=== PATIENT | female | born 1985 | race American Indian/Alaskan Native ===

== ENCOUNTER 2022-08-16 10:37 | Inpatient (IN) | payer BC ==
[2022-08-16] MEDS ORDERED: ACETAMINOPHEN 500 MG TAB PO ONE (11:46)
[2022-08-16] MEDS ORDERED: LACTATED RINGERS 1,000 ML IV SCH ×3 (12:00→14:15)
[2022-08-16] MEDS ORDERED: LIDOCAINE (2%) 20 MG/1 ML VIAL 20 ML MDV INFILTRATI ONE (12:05)
[2022-08-16] MEDS ORDERED: METHYLERGONOVINE MALEATE 0.2 MG/ML VIAL IM PRN (12:05)
[2022-08-16] MEDS ORDERED: CARBOPROST TROMETHAMINE 250 MCG/1 ML INJ IM PRN (12:05)
[2022-08-16] MEDS ORDERED: TERBUTALINE 1 MG/1 ML INJ SUB-Q PRN (12:05)
[2022-08-16] MEDS ORDERED: LOPERAMIDE 2 MG CAP PO PRN (12:05)
[2022-08-16] MEDS ORDERED: fentaNYL 100 MCG/2 ML INJ IV PRN (12:05)
[2022-08-16] MEDS ORDERED: ePHEDrine SULFATE 50 MG/1 ML INJ IV PRN ×2 (12:05→14:30)
[2022-08-16] MEDS ORDERED: ACETAMINOPHEN 325 MG TAB PO PRN (12:05)
[2022-08-16] MEDS ORDERED: BUTORPHANOL 2 MG/1 ML INJ IV PRN (12:05)
[2022-08-16] MEDS ORDERED: MINERAL OIL 30 ML ORAL LIQD PO PRN (12:05)
[2022-08-16] MEDS ORDERED: miSOPROStol 200 MCG TAB PR PRN (12:05)
[2022-08-16] MEDS ORDERED: OXYTOCIN 10 UNIT/1 ML INJ IM PRN (12:05)
--- NOTE | 2022-08-16 12:14 | History and Physical Report ---
History of Present Illness Date of examination: 08/16/22 Chief complaint: Labor History of present illness: EDC Calculations by LMP: 08/22/2022 Past History : 7 Term Births: 1 Premature Births: 0 Living Children: 1 Para: 1 Mult. Births: 0 Prev : 0 Prev. attempt? 0 Aborta: 5 Elect. Ab: 5 Spont. Ab: 0 Ectopics: 0 # 1 Delivery type: EAB # 2 Delivery type: EAB # 3 Delivery date: 2008 Weeks Gestation: 40 Delivery type: Infant Sex: Male weight: 8'12 Comments: Kate's palsy # 4 Delivery type: EAB # 5 Delivery type: EAB # 6 Delivery date: 11/2020 Weeks Gestation: 7 Delivery type: EAB Comments: D&C x 5 Past Medical History: Reviewed history from 10/29/2021 and no changes required: [place] Palsy age 12 and during her . Past Surgical History: Reviewed and updated today: negative Family History Summary: Reviewed history Last on 10/29/2021 and no changes required:01/14/2022 Mother - Has Family History of Diabetes - MGM t2DM - Entered On: 02/06/2017 Mother - Has Family History of Hypertension - father - Entered On: 02/06/2017 General Comments - FH: MGM kidney cancer, ; Social History: Reviewed history from 05/20/2019 and no changes required: Patient is single in a relation for 2 weeks. used only condoms. Smoking History: Patient has never smoked. 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 counselor % Alcohol Use: no Drug Use: no Past Medical History Anesthesia Complications: negative Anemia: negative Autoimmune Disorder: negative Bleeding Disorder: negative Blood Transfusions: negative Breast Disease: negative Diabetes: negative Heart Disease: negative Hypertension: negative Hepatitis/Liver Disease: negative Kidney Disease/UTI: negative Neurologic/Epilepsy/Migraines: negative Phlebitis/Varicosities: negative Psychiatric: negative Pulmonary Disease/Asthma: negative Thyroid Disease: negative Hospitalizations: negative Surgery (Non-meat cooler): negative Abnormal PAP: negative MAL Exposure: negative Infertility: negative Uterine Anomaly: negative Uterine Surgery (not C/S): negative Other Gynecologic Problems: negative Social Hx: Patient is single in a relation for 2 weeks. used only condoms. Smoking History: Patient has never smoked. Infection History Hx of STD: none HIV Risk Eval: no Hepatitis B Risk Eval: low risk Personal hx. of genital herpes: yes Rash, Viral, or Febrile illness since last LMP? no Varicella/Chicken Pox Status: Previous Disease TB Risk: no Genetic History Congenital Heart Defect: Mom: no Dad: no Mario Disease: Mom: no Dad: no Thalassemia Mom: no Dad: no Neural Tube Defect Mom: no Dad: no Down's Syndrome Mom: no Dad: no Bill-Sachs Mom: no Dad: no Sickle Cell Disease/Trait Mom: no Dad: no Hemophilia Mom: no Dad: no Muscular Dystrophy Mom: no Dad: no Cystic Fibrosis Mom: no Dad: no Renee Chorea Mom: no Dad: no Mental Retardation Mom: no Dad: no Fragile X Mom: no Dad: no Other Genetic/Chromosomal Disorder Mom: no Dad: no Child w/other defect Mom: no Dad: no Enviromental Exposures Enviromental Exposures Reviewed Xray Exposure: no Medication, drug, or alcohol use since LMP: no Chemical/Other Exposure: no Exposure to Cat Liter: no Hx of Parvovirus (Fifth Disease): no 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 (reviewed today): None Current Allergies (reviewed today): No known allergies Past History Past Medical History: other (see HPI) Past Surgical History: other (see HPI) TOE SEWER History: other (see HPI) Family/Genetic History: other (see HPI) - Obstetrical History Expected Date of Delivery: 08/22/22 Actual Gestation: 39 Week(s) 1 Day(s) : 7 Para: 1 Hx # Term Pregnancies: 1 Number of Pregnancies: 0 Spontaneous Abortions: 0 Induced : 5 Number of Living Children: 1 Medications and Allergies Allergies Allergy/AdvReac Type Severity Reaction Status Date / Time No Known Allergies Allergy Unverified 08/16/22 11:27 Active Meds: Active Medications Lactated Ringer's (Lactated Ringers) 1,000 mls @ 150 mls/hr IV DIRECT ARTURO Review of Systems All systems: negative - Vital Signs Vital signs: Vital Signs Pulse Pulse Ox 93 H 93 08/16/22 11:33 08/16/22 11:33 Temp Pulse Resp BP Pulse Ox 94 H 130/55 90 08/16/22 12:06 08/16/22 11:34 08/16/22 12:06 - Physical Exam Breasts: Positive: normal Cardiovascular: Regular rate Lungs: Positive: Normal air movement Abdomen: Positive: normal appearance, soft Genitourinary (Female): Positive: normal external genitalia, normal perenium Vagina: Positive: normal moisture Uterus: Positive: normal size, normal contour Anus/Rectum: Positive: normal perianal skin Extremities: Positive: normal Deep Tendon Reflex Grade: Normal +2 - Obstetrical FHR: category 2 Uterine Contraction Monitor Mode: External Cervical Dilatation: 3 (cephalic) Cervical Effacement Percentage: 90 station: -1 Uterine Contraction Frequency (min): 2-4 Uterine Contraction Duration: 60 Uterine Contraction Pattern: Regular Uterine Tone Measurement Phase: Contraction Uterine Contraction Intensity: Strong/Firm Results All other labs normal. Assessment and Plan 37y/o @ 39+1 weeks presented in active labor - went from /high to /-1 with normal bloody show in <1hr. decresed variabilty, 4.5min decel in FHT down to the 60's noted immediately before recheck. EFW 8#2oz 08/09/2022, pt reports last baby 8#12oz without difficulty. Admission orders in EMR. GBS NEG. Dr. Farris aware. - Patient Problems (1) 39 weeks gestation of Current Visit: Yes Status: Acute (2) WPW (Atqmp-Bsdceiduf-Fqwwl syndrome) Current Visit: Yes Status: Acute (3) AMA (advanced maternal age) multigravida 35+ Current Visit: Yes Status: Acute Qualifiers: Trimester: third trimester Qualified Code(s): O09.523 - Supervision of elderly multigravida, third trimester (4) pyelectasis Current Visit: Yes Status: Acute Plan to address problem: right side - pylectasis Left side hydronephrosis Bilateral renal dilation ~peds to f/u after delivery (5) hydronephrosis Current Visit: Yes Status: Acute Plan to address problem: Left side Peds to follow after delivery
[2022-08-16] MEDS ORDERED: OXYTOCIN DRIP 30 UNITS/500 ML BAG IV SCH ×3 (13:00→17:47)
[2022-08-16 13:26] LABS: Hematocrit 30.9 % (30.3-42.9); Hemoglobin 9.7 gm/dl (10.1-14.3); Mean Corpuscular HGB Conc 31 % (30-34); Mean Corpuscular Volume 76 fl (79-97); Platelet Count 219 K/mm3 (140-440); Red Blood Count 4.08 M/mm3 (3.65-5.03); Red Cell Distribution Width 18.1 % (13.2-15.2)
[2022-08-16] MEDS ORDERED: fentaNYL-BUPIV 2 MCG/ML-0.125% 200 MCG/100 ML BAG EPIDURAL SCH (14:00)
[2022-08-16] MEDS ORDERED: METOCLOPRAMIDE 10 MG/2 ML INJ IV SCH (14:14)
[2022-08-16] MEDS ORDERED: FAMOTIDINE 20 MG/2 ML INJ IV SCH (14:14)
[2022-08-16] MEDS ORDERED: BICITRA ORAL LIQD 30ML PO SCH (14:14)
[2022-08-16] MEDS ORDERED: MORPHINE PF 10MG/10 ML AMPULE ONE (14:16)
--- NOTE | 2022-08-16 14:16 | Event Note ---
Date: 08/16/22 Patient sitting up for epidural, FHT deceleration noted down to 60's without recovery after position change. Dr. Farris called for stat c/s, pt moved to OR. All appropriate staff aware. pre-op ordered placed.
[2022-08-16] MEDS ORDERED: propofoL 200 MG/20 ML VIAL IV ONE (14:19)
[2022-08-16] MEDS ORDERED: SUCCINYLCHOLINE CHLORIDE 200 MG/10 ML INJ MDV ONE (14:19)
[2022-08-16] MEDS ORDERED: NALOXONE 0.4 MG/1 ML INJ IV PRN ×3 (14:30→17:47)
[2022-08-16] MEDS ORDERED: KETAMINE/STERILE WATER 50 MG/ML SYRINGE ONE (14:31)
[2022-08-16] MEDS ORDERED: ROCURONIUM 50 MG/5 ML INJ IV ONE (14:33)
[2022-08-16] MEDS ORDERED: OXYTOCIN 10 UNIT/1 ML INJ ONE ×2 (14:33→14:55)
[2022-08-16] MEDS ORDERED: PHENYLEPHRINE/NS 1,000 MCG/10 ML SYRINGE (OR USE) IV ONE (14:36)
[2022-08-16] MEDS ORDERED: LIDOCAINE MPF (2%) 20 MG/1 ML VIAL 5 ML ONE (14:42)
[2022-08-16] MEDS ORDERED: MIDAZOLAM 2 MG/2 ML INJ ONE (14:57)
[2022-08-16] MEDS ORDERED: ceFAZolin/Water 2 GM/20 ML 2 GM/20 ML SYRINGE IV SCH (15:00)
[2022-08-16] MEDS ORDERED: LACTATED RINGERS 1,000 ML ONE (15:00)
[2022-08-16] MEDS ORDERED: ONDANSETRON 4 MG/2 ML INJ ONE (15:12)
[2022-08-16] MEDS ORDERED: dexAMETHasone 20 MG/5 ML VIAL ONE (15:13)
[2022-08-16] MEDS ORDERED: GLYCOPYRROLATE 0.4 MG/2 ML INJ ONE (15:14)
[2022-08-16] MEDS ORDERED: NEOSTIGMINE 10MG/10 ML INJ MDV ONE (15:14)
[2022-08-16 15:24] LABS: ABG Base Excess -3.6 mmol/L (-2.0-3.0); ABG HCO3 22.1 mmol/L (20.0-26.0); ABG Oxygen Saturation 54.4 % (95.0-99.0); ABG PCO2 42.4 mm Hg; ABG PH 7.335 pH Units (7.350-7.450)
--- NOTE | 2022-08-16 15:34 | Operative Report ---
Operative Report Operative Report: Date of Procedure: August 16, 2022 Preoperative diagnosis: IUP @39 weeks, nonreassuring heart tracing Postoperative diagnosis: same, s/p stat section Procedure: Low transverse section Surgeon: Shelley Farris MD Hospital Sales Representative: SULEMA Anesthesia: General Complications: Uterine atony status post 10 units intramuscular Pitocin and Methergine QBL:1192 ml IV Fluids: 2400 ml UOP:200 ml, clear urine at the end of procedure Indications: Prolonged deceleration Findings:3970 g female in direct occiput posterior position cephalic presentation with Apgars 8 & 8 Amniotic fluid thick meconium Fallopian tubes normal in appearance bilaterally Ovaries normal in appearance bilaterally Procedure: The patient was taken to the operating room where general anesthesia was was given following a Betadine splash and draping in a sterile fashion. A Pfannenstiel skin incision was made with the scalpel and carried through to the underlying rectus muscle. The rectus muscles were then in the midline, and the peritoneum identified and entered bluntly. The peritoneal incision was then extended superiorly and inferiorly with good visualization of the bladder. The bladder blade was placed and the lower uterine segment incised in a transverse fashion with the scalpel. The uterine incision was then extended laterally digitally. The bladder blade was then removed and the infant was delivered via direct occiput posterior position. The cord was clamped and cut. The was handed off to the waiting pediatricians.The placenta was then removed; the uterus exteriorized and cleared of all clots and debris. The uterus was noted to be atonic despite IV Pitocin. 10 units of Pitocin was given intra muscularly to the uterus. Anemia both of arterial bleeding was noted along the hysterotomy and repaired using a jrjzsb-en-kndbe suture hemostasis obtained. The uterine incision was repaired with 0 vicryl in a running locked fashion to obtain excellent hemostasis. An imbrication layer was done. An area of oozing was noted and a figure of eight suture was placed giving excellent hemostasis. Uterus returned to the abdomen. The rectus muscle was reapproximated with 2-0 vicryl. The fascia was reapproximated with 0 vicryl in a running fashion. Subcutaneous layer reapproximated with interrupted sutures of 2-0 vicryl. The skin was closed with 4-0 monocryl subcuticular stitch and the incision sealed with Steri-strips.The patient tolerated the procedure well. Sponge, lap, needle counts correct X 2. The patient was taken to the recovery room in a stable condition.
--- NOTE | 2022-08-16 15:52 | Anesthesia Consultation ---
Anesthesia Consult and Med Hx Date of service: 08/16/22 - Airway Anesthetic Teeth Evaluation: Poor ROM Head & Neck: Adequate Mental/Hyoid Distance: Adequate Mallampati Class: Class III Intubation Access Assessment: Probably Good - Pulmonary Exam CTA: Yes - Cardiac Exam Cardiac Exam: RRR - Pre-Operative Health Status ASA Pre-Surgery Classification: ASA3, Emergency Proposed Anesthetic Plan: General - Pulmonary Hx Smoking: No Hx Asthma: No Hx Respiratory Symptoms: No - Cardiovascular System Hx Hypertension: No Hx Cardia Arrhythmia: Yes (tiffany Parkinson Whit ) - Endocrine Hx Insulin Dependent Diabetes: No Hx Non-Insulin Dependent Diabetes: No Hx Thyroid Disease: No - Hematic Hx Anemia: Yes - Other Systems Hx Alcohol Use: No Hx Substance Use: No Hx Obesity: Yes
[2022-08-16] MEDS ORDERED: HYDROmorphone 1 MG/1 ML INJ IV PRN (16:30)
[2022-08-16] MEDS ORDERED: ONDANSETRON 4 MG/2 ML INJ IV PRN (16:30)
[2022-08-16 16:32] LABS: ABG PO2 24.6 mm Hg (80.0-90.0)
[2022-08-16 17:00] LABS: Mean Corpuscular HGB Conc 29 % (30-34); Mean Corpuscular Volume 79 fl (79-97); Platelet Count 253 K/mm3 (140-440); Red Cell Distribution Width 18.6 % (13.2-15.2)
[2022-08-16 17:05] LABS: Hematocrit 30.1 % (30.3-42.9); Hemoglobin 8.8 gm/dl (10.1-14.3)
[2022-08-16] MEDS ORDERED: MORPHINE 2 MG/1 ML INJ IV PRN (17:47)
[2022-08-16] MEDS ORDERED: LANOLIN/ZINC/DIMETHICONE (LANSINOH) 7 GM TP PRN (17:47)
[2022-08-16] MEDS ORDERED: MORPHINE 4 MG/1 ML INJ IV PRN (17:47)
[2022-08-16] MEDS ORDERED: WITCH HAZEL/ GLYCERIN PAD TP PRN (17:47)
[2022-08-16] MEDS: ceFAZolin/NS 2 GM/100 ML 2 GM/100 ML BAG IV SCH (18:55)
[2022-08-16 19:37] LABS: Anisocytosis 1+; Band Neutrophils # (Manual) 0.3 K/mm3; Basophils % (Manual) 0 % (0.0-1.8); Eosinophils % (Manual) 0 % (0.0-4.3); Hypochromasia Few; Platelet Estimate Consistent w Auto; Total Cells Counted 100
[2022-08-16] MEDS: KETOROLAC 30 MG/1 ML INJ IV SCH (21:37)
[2022-08-17] MEDS: HYDROmorphone 1 MG/1 ML INJ IV PRN ×2 (00:06→07:06)
[2022-08-17] MEDS: ceFAZolin/NS 2 GM/100 ML 2 GM/100 ML BAG IV SCH ×2 (02:41→10:36)
[2022-08-17] MEDS: KETOROLAC 30 MG/1 ML INJ IV SCH ×2 (04:22→09:37)
[2022-08-17 06:14] LABS: Hemoglobin 7.3 gm/dl (10.1-14.3)
[2022-08-17] MEDS ORDERED: LACTATED RINGERS 1,000 ML IV SCH (08:00)
[2022-08-17] MEDS: FERROUS SULFATE 325 MG TAB PO SCH ×4 (10:36→21:15)
[2022-08-17] MEDS: PRENATAL VIT27-FE FUMARATE-FOLIC ACID VIT TAB PO SCH (10:36)
--- NOTE | 2022-08-17 11:08 | Progress Note ---
Assessment and Plan doing well, no complaints. Ambulated to bathroom without difficulty. incision dressed and dry, will remove before or during shower today. VSSAF, H&H 7.3 - asymptomatic anemia due to acute blood loss - Patient Problems (1) WPW (Kfyhm-Qfpjjxbep-Zayxr syndrome) Current Visit: Yes Status: Acute (2) delivery delivered Current Visit: Yes Status: Acute Plan to address problem: continue postop pathway advance diet and activity as tolerated Anticipate d/c home tomorrow. Subjective - Subjective Date of service: 08/17/22 Principal diagnosis: postop day # 1 s/p primary c/s Interval history: EDC Calculations by LMP: 08/22/2022 Past History : 7 Term Births: 1 Premature Births: 0 Living Children: 1 Para: 1 Mult. Births: 0 Prev : 0 Prev. attempt? 0 Aborta: 5 Elect. Ab: 5 Spont. Ab: 0 Ectopics: 0 # 1 Delivery type: EAB # 2 Delivery type: EAB # 3 Delivery date: 2008 Weeks Gestation: 40 Delivery type: Sex: Male weight: 8'12 Comments: Kate's palsy # 4 Delivery type: EAB # 5 Delivery type: EAB # 6 Delivery date: 11/2020 Weeks Gestation: 7 Delivery type: EAB Comments: D&C x 5 Past Medical History: Reviewed history from 10/29/2021 and no changes required: [place] Palsy age 12 and during her . Past Surgical History: Reviewed and updated today: negative Family History Summary: Reviewed history Last on 10/29/2021 and no changes required:01/14/2022 Mother - Has Family History of Diabetes - MGM t2DM - Entered On: 02/06/2017 Mother - Has Family History of Hypertension - father - Entered On: 02/06/2017 General Comments - FH: MGM kidney cancer, ; Social History: Reviewed history from 05/20/2019 and no changes required: Patient is single in a relation for 2 weeks. used only condoms. Smoking History: Patient has never smoked. 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 % Alcohol Use: no Drug Use: no Past Medical History Anesthesia Complications: negative Anemia: negative Autoimmune Disorder: negative Bleeding Disorder: negative Blood Transfusions: negative Breast Disease: negative Diabetes: negative Heart Disease: negative Hypertension: negative Hepatitis/Liver Disease: negative Kidney Disease/UTI: negative Neurologic/Epilepsy/Migraines: negative Phlebitis/Varicosities: negative Psychiatric: negative Pulmonary Disease/Asthma: negative Thyroid Disease: negative Hospitalizations: negative Surgery (Non-recreation director): negative Abnormal PAP: negative MAL Exposure: negative Infertility: negative Uterine Anomaly: negative Uterine Surgery (not C/S): negative Other Gynecologic Problems: negative Social Hx: Patient is single in a relation for 2 weeks. used only condoms. Smoking History: Patient has never smoked. Infection History Hx of STD: none HIV Risk Eval: no Hepatitis B Risk Eval: low risk Personal hx. of genital herpes: yes Rash, Viral, or Febrile illness since last LMP? no Varicella/Chicken Pox Status: Previous Disease TB Risk: no Genetic History Congenital Heart Defect: Mom: no Dad: no Mario Disease: Mom: no Dad: no Thalassemia Mom: no Dad: no Neural Tube Defect Mom: no Dad: no Down's Syndrome Mom: no Dad: no Bill-Sachs Mom: no Dad: no Sickle Cell Disease/Trait Mom: no Dad: no Hemophilia Mom: no Dad: no Muscular Dystrophy Mom: no Dad: no Cystic Fibrosis Mom: no Dad: no [place] Chorea Mom: no Dad: no Mental Retardation Mom: no Dad: no Fragile X Mom: no Dad: no Other Genetic/Chromosomal Disorder Mom: no Dad: no Child w/other defect Mom: no Dad: no Enviromental Exposures Enviromental Exposures Reviewed Xray Exposure: no Medication, drug, or alcohol use since LMP: no Chemical/Other Exposure: no Exposure to Cat Liter: no Hx of Parvovirus (Fifth Disease): no 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 (reviewed today): None Current Allergies (reviewed today): No known allergies Patient reports: appetite normal, voiding normally, pain well controlled, ambulating normally, no dizzy ambulation, no flatus, no nauseated : doing well Objective - Vital Signs Latest vital signs: Vital Signs Temp Pulse Resp BP BP Pulse Ox Pulse Ox 08/17/22 08:30 100 08/17/22 07:44 98.7 F 105 H 18 104/63 100 08/17/22 07:06 16 08/17/22 04:28 98.9 F 96 H 18 113/65 97 08/17/22 00:06 16 08/16/22 22:40 98.6 F 87 18 114/72 98 08/16/22 19:50 96 08/16/22 17:35 89 18 95/59 93 08/16/22 16:40 98 H 15 95/64 96 08/16/22 16:30 84 15 102/58 96 08/16/22 16:20 80 14 103/58 94 08/16/22 16:10 80 18 98/59 99 08/16/22 14:10 98 H 109/61 100 08/16/22 14:05 104 H 100 08/16/22 13:59 83 99/72 08/16/22 13:13 82 118/59 08/16/22 13:12 73 91 08/16/22 12:31 91 H 97 08/16/22 12:27 89 94 08/16/22 12:26 98 H 99 08/16/22 12:21 102 H 95 08/16/22 12:19 89 94 08/16/22 12:16 91 H 94 08/16/22 12:13 91 H 94 08/16/22 12:11 98 H 97 08/16/22 12:06 94 H 90 08/16/22 12:04 95 H 93 08/16/22 12:01 89 97 08/16/22 11:56 92 H 96 08/16/22 11:54 98 H 94 08/16/22 11:51 88 94 08/16/22 11:48 94 H 94 08/16/22 11:46 92 H 97 08/16/22 11:42 100 H 93 08/16/22 11:41 96 H 96 08/16/22 11:36 91 H 96 08/16/22 11:34 89 130/55 08/16/22 11:33 93 H 93 Intake and Output 08/16/22 08/17/22 08/17/22 23:59 07:59 15:59 Intake Total 300 300 Output Total 600 150 300 Balance -300 150 -300 Intake: IV 100 100 ceFAZolin/NS 2 GM/100 ML 100 100 2 gm In 100 ml @ 200 mls/ hr IV Q8H ARTURO Rx#: [id number] Intake, Free Water 200 200 Output: Urine 600 150 300 Indwelling 300 Indwelling Catheter 300 150 Void 300 Other: Total, Output Amount 300 150 300 - Exam Breasts: Present: normal Cardiovascular: Present: Regular rate Lungs: Present: Clear to auscultation, Normal air movement Abdomen: Present: normal appearance, soft. Absent: tenderness, guarding Vulva: both: normal Uterus: Present: normal, firm, fundal height above umbilicus Extremities: Present: normal Incision: Present: normal, dry, dressed - Labs Labs: Abnormal lab results 08/16/22 08/16/22 08/16/22 Range/Units 12:11 14:40 15:11 WBC 12.1 H 25.9 H (4.5-11.0) K/mm3 Hgb 9.7 L 8.8 L (10.1-14.3) gm/dl Hct 30.1 L (30.3-42.9) % MCV 76 L (79-97) fl MCH 24 L 23 L (28-32) pg MCHC 29 L (30-34) % RDW 18.1 H 18.6 H (13.2-15.2) % Seg Neuts % (Manual) 90.0 H (40.0-70.0) % Lymphocytes % (Manual) 6.0 L (13.4-35.0) % Seg Neutrophils # Man 23.3 H (1.8-7.7) K/mm3 ABG pH 7.335 L (7.350-7.450) pH Units ABG pO2 24.6 L* (80.0-90.0) mm Hg ABG O2 Saturation 54.4 L (95.0-99.0) % ABG Base Excess -3.6 L (-2.0-3.0) mmol/L Oxyhemoglobin 53.1 L (95.0-99.0) % 08/17/22 Range/Units 05:23 WBC (4.5-11.0) K/mm3 Hgb 7.3 L (10.1-14.3) gm/dl Hct 24.0 L D (30.3-42.9) % MCV (79-97) fl MCH (28-32) pg MCHC (30-34) % RDW (13.2-15.2) % Seg Neuts % (Manual) (40.0-70.0) % Lymphocytes % (Manual) (13.4-35.0) % Seg Neutrophils # Man (1.8-7.7) K/mm3 ABG pH (7.350-7.450) pH Units ABG pO2 (80.0-90.0) mm Hg ABG O2 Saturation (95.0-99.0) % ABG Base Excess (-2.0-3.0) mmol/L Oxyhemoglobin (95.0-99.0) %
[2022-08-17] MEDS: oxyCODONE /ACETAMINOPHEN 5-325MG TAB PO PRN ×2 (11:52→17:57)
--- NOTE | 2022-08-17 14:02 | Post Anesthesia Evaluation ---
- Post Anesthesia Evaluation Patient Participated: Yes Airway Patent: Yes Stable Respiratory Function: Yes Nausea/Vomiting: No Temp > 96.8F: Yes Pain Manageable: Yes Adequeate Hydration: Yes Anesthesia Complications: No Block Receding Appropriately: Yes Patient on Ventilator: No
[2022-08-17] MEDS: IBUPROFEN 800 MG TAB PO SCH ×2 (16:48→22:15)
[2022-08-18] MEDS: oxyCODONE /ACETAMINOPHEN 5-325MG TAB PO PRN ×2 (02:15→10:41)
[2022-08-18] MEDS: IBUPROFEN 800 MG TAB PO SCH ×2 (06:35→15:48)
[2022-08-18 08:27] LABS: Hemoglobin 5.7 gm/dl (10.1-14.3)
[2022-08-18 08:29] LABS: Hematocrit 18.8 % (30.3-42.9)
[2022-08-18] MEDS: FERROUS SULFATE 325 MG TAB PO SCH (10:37)
[2022-08-18] MEDS: PRENATAL VIT27-FE FUMARATE-FOLIC ACID VIT TAB PO SCH (10:37)
[2022-08-18] MEDS ORDERED: SODIUM CHLORIDE 0.9% 500 ML 500 ML IV ONE (13:12)
--- NOTE | 2022-08-18 14:22 | Discharge Summary ---
Providers - Providers Date of Admission: 08/16/22 12:05 Date of discharge: 08/18/22 (desires d/c home, declines blood transfusion) Attending physician: TIMMY BARRERA MD Primary care physician: TIMMY BARRERA MD Hospitalization Reason for admission: Labor Condition: Good Pertinent studies: post delivery H&H 5.5/18.8, anemia d/t acute blood loss. pt denies symptoms, declines transfusion. Procedures: primary c/s Hospital course: uncomplicated c/s and postop course Disposition: 01 HOME / SELF CARE / HOMELESS Final Discharge Diagnosis (Prints w/discharge instructions): postop c/s, anemia Time spent for discharge: 25 - Discharge Diagnoses (1) WPW (Scgtz-Wfczgkwow-Nxwov syndrome) Status: Acute (2) delivery delivered Status: Acute (3) Anemia Status: Acute Core Measure Documentation - Palliative Care Palliative Care/ Comfort Measures: Not Applicable - Core Measures Any of the following diagnoses?: none Exam - Constitutional Vitals: Temp Pulse Resp BP Pulse Ox 98.1 F 90 18 110/68 100 08/18/22 08:44 08/18/22 08:44 08/18/22 08:44 08/18/22 08:44 08/18/22 08:44 General appearance: Present: no acute distress, well-nourished - EENT Eyes: Present: PERRL ENT: hearing intact, clear oral mucosa - Neck Neck: Present: supple, normal ROM - Respiratory Respiratory effort: normal Respiratory: bilateral: CTA - Cardiovascular Rhythm: regular Heart Sounds: Absent: rub, click - Extremities Extremities: No edema Peripheral Pulses: within normal limits - Abdominal General gastrointestinal: Present: soft, non-tender, non-distended, normal bowel sounds Female genitourinary: Present: normal - Integumentary Integumentary: Present: clear, warm, dry - Musculoskeletal Musculoskeletal: gait normal, strength equal bilaterally - Psychiatric Psychiatric: appropriate mood/affect, intact judgment & insight - Neurologic Neurologic: CNII-XII intact, moves all extremities - Additional findings Additional findings: lochia scant, fundus firm, denies feeling dizzy, SOB or light headed. Plan Activity: advance as tolerated Diet: regular Wound: open to air, keep clean and dry Follow up with: TIMMY BARRERA MD [Primary Care Provider] - 7 Days Prescriptions: Docusate Sodium [Colace] 100 mg PO BID #60 capsule Ferrous Sulfate [Feosol 325 MG tab] 325 mg PO QDAY #30 tablet Ibuprofen [Motrin 800 MG tab] 800 mg PO Q8HR #30 tablet oxyCODONE /ACETAMINOPHEN [Percocet 5/325] 1 tab PO Q6HR PRN #20 tablet PRN Reason: Pain Vit-Fe Fumar-FA [ Vitamin] 1 tab PO QDAY #30 tablet
--- NOTE | 2022-08-18 14:36 | Event Note ---
Date: 08/18/22 To patient room to discuss blood transfusion. Patient hemoglobin currently 5.5. Vital signs within normal limits.Transfusion previously recommended, but patient declined at that time. Again discussed the importance of receiving blood due to severity of anemia. Discussed risk associated with severe anemia including difficulty with milk production, fatigue, WI, and even . Patient currently asymptomatic, but notes at times she has felt "Funny," but believes it is due to not having a real meal. Reviewed signs and symptoms of anemia and that she may be experiencing them. Patient states she will consider transfusion and inform us of her decision.
[2022-08-18 19:10] VITALS: BP 115/69
== END 2022-08-18 17:05 | disposition home or self-care (01) | DRG 787 ==
LOC: TRG 10:37 → APU 10:39 → TRG 12:05 → LD 12:05 → APU 14:26 → OB 17:20
PROVIDERS: ADMIT Student in an Organized Health Care Education/Training Program; ATTEND Student in an Organized Health Care Education/Training Program
PROC: 10D00Z1 Extraction of Products of Conception, Low, Open Approach (ICD-10-PCS; principal; 2022-08-16)
DX: O76 Abnormality in fetal heart rate and rhythm complicating labor and delivery (principal); D62 Acute posthemorrhagic anemia; O98.32 Other infections with a predominantly sexual mode of transmission complicating childbirth; Q62.0 Congenital hydronephrosis; Z3A.39 39 weeks gestation of pregnancy; Z20.822 Contact with and (suspected) exposure to COVID-19; A60.00 Herpesviral infection of urogenital system, unspecified; Z37.0 Single live birth; O75.89 Other specified complications of labor and delivery; I45.6 Pre-excitation syndrome; O77.0 Labor and delivery complicated by meconium in amniotic fluid; O90.81 Anemia of the puerperium
CPT/HCPCS: 36415; 82803; 85007; 85014; 85018; 85025; 85027; 86850; 86900; 86901; 86920; 88307; G0378; J1815; J3490; J0330; J1100; J1170; J1885; J2250; J2270; J2274; J2370; J2405; J2590; J2704; J2710; J3010; J7120; U0003